=== PATIENT | female | born 1970 | race Caucasian/White ===

== ENCOUNTER 2019-07-26 17:21 | Emergency (ER) | payer MEDICAID ==
[~2019-07-26] VITALS: Ht 175.3 cm; Wt 50.9 kg
[2019-07-26 17:21] VITALS: BP 128/93
[~2019-07-26 17:21] MED LIST: PHEN-716 PO
[2019-07-26] MEDS ORDERED: CEPH500C5 PO (18:34)
[2019-07-26] MEDS ORDERED: L. R1CAP4 PO (18:34)
[2019-07-26 18:47] LABS: URINE HCG NEGATIVE (NEG)
[2019-07-26 18:53] LABS: CLARITY,URINE SLIGHTLY CLOUDY (Clear); COLOR,URINE ORANGE (Yellow)
[2019-07-26 18:56] LABS: UA COLLECTION TYPE CLN CATCH MIDSTREAM
[2019-07-26 19:04] LABS: BACTERIA,URINE FEW /HPF (Neg); CAL OXALATE CRYSTALS 3+ /HPF (NEGATIVE); RBC,URINE 0-2 /HPF (0-2); SQUAMOUS EPITHELIAL CELL,UR FEW /LPF (FEW); WBC,URINE 0-4 /HPF (0-4)
== END 2019-07-26 19:17 | disposition home or self-care (01) ==
LOC: ER 17:30
DX: N39.0 Urinary tract infection, site not specified (principal); F41.9 Anxiety disorder, unspecified; F32.9 Major depressive disorder, single episode, unspecified; Z88.2 Allergy status to sulfonamides; Z79.899 Other long term (current) drug therapy
CPT/HCPCS: 81001; 81025; 99283

== ENCOUNTER 2019-08-16 12:57 | Emergency (ER) | payer MEDICAID ==
[~2019-08-16] VITALS: Ht 177.8 cm; Wt 50.5 kg
[~2019-08-16 12:57] MED LIST changes: +L. R1CAP4 PO
[2019-08-16 13:09] VITALS: BP 115/67
[2019-08-16] MEDS ORDERED: ERYT1OIN6 RIGHTEYE (14:12)
== END 2019-08-16 14:19 | disposition home or self-care (01) ==
LOC: ER 12:59
DX: H10.89 Other conjunctivitis (principal); B96.89 Other specified bacterial agents as the cause of diseases classified elsewhere; F41.9 Anxiety disorder, unspecified; F32.9 Major depressive disorder, single episode, unspecified; Z79.899 Other long term (current) drug therapy; Z88.2 Allergy status to sulfonamides
CPT/HCPCS: 99283

== ENCOUNTER 2022-06-05 20:35 | Emergency (ER) | payer MEDICAID ==
[~2022-06-05] VITALS: Ht 175.3 cm; Wt 53.6 kg
[2022-06-05 20:55] VITALS: BP 139/94
[2022-06-05 21:49] LABS: URINE HCG NEGATIVE (NEG)
[2022-06-05 22:02] LABS: CLARITY,URINE SLIGHTLY CLOUDY (Clear); COLOR,URINE ORANGE (Yellow); UA COLLECTION TYPE CLN CATCH MIDSTREAM
[2022-06-05 22:03] LABS: BACTERIA,URINE 1+ /HPF (Neg); RBC,URINE 0-2 /HPF (0-2); SQUAMOUS EPITHELIAL CELL,UR FEW /LPF (FEW); WBC,URINE 50-100 /HPF (0-4)
[2022-06-05] MEDS ORDERED: CEPH500C2 PO (22:34)
[2022-06-05] MEDS ORDERED: cephalexin 500mg capsule PO ONE (22:35)
--- NOTE | 2022-06-05 22:42 | NUR ---
po med given
== END 2022-06-05 22:59 | disposition home or self-care (01) ==
LOC: ER 20:36
DX: N39.0 Urinary tract infection, site not specified (principal); R31.9 Hematuria, unspecified; Z88.2 Allergy status to sulfonamides
CPT/HCPCS: 81001; 81025; 87077; 87088; 87186; 99283

== ENCOUNTER 2023-06-24 20:01 | Emergency (ER) | payer MEDICAID ==
[~2023-06-24] VITALS: Ht 175.3 cm; Wt 53.2 kg
[2023-06-24 20:30] VITALS: BP 123/78; PULSE 95; RESP 16; O2SAT 100
--- NOTE | 2023-06-24 20:53 | NUR ---
Note jamie in ED - 06/24/23 at 2057 by LORAINE SPOKE WITH MD REGARDING PT PRESENTATION. ORDERS RECIEVED.
[2023-06-25] MEDS ORDERED: proparacaine 0.5% ophthalmic drops 15ml EACHEYE ONE (00:40)
[2023-06-25] MEDS ORDERED: HYDROcodone/acetaminophen 10/325mg tab PO ONE (00:40)
[2023-06-25] MEDS ORDERED: erythromycin ophthalmic ointment 1gm tube EACHEYE ONE (00:40)
[2023-06-25] MEDS ORDERED: ibuprofen tablet 400 MG TABLET PO ONE (01:05)
[2023-06-25] MEDS ORDERED: IBUP-1984 PO (01:11)
[2023-06-25] MEDS ORDERED: CIPR2.5D21 LEFTEYE (01:11)
[2023-06-25 01:15] VITALS: TEMP 99.8
== END 2023-06-25 01:20 | disposition home or self-care (01) ==
LOC: ER 20:01
DX: H10.32 Unspecified acute conjunctivitis, left eye (principal)
CPT/HCPCS: 99283

== ENCOUNTER 2025-08-13 13:56 | Outpatient (CLI) | payer MEDICAID ==
--- NOTE | 2025-08-13 16:25 | RADIOLOGY REPORT ---
EXAM: CT CT CHEST LOW DOSE HISTORY: NICOTINE DEPENDENCE, CIGARETTES, UNCOMPLICATED COMPARISON: None TECHNIQUE: Noncontrast helical CT images of the chest were performed utilizing low dose lung cancer screening protocol. Sagittal and coronal reformatted images were obtained. This CT exam was performed using one or more of the following dose reduction techniques: Automated exposure control, adjustment of the mA and/or kV according to patient size, or use of iterative reconstruction technique. Radiation Dose: CT Dose: CTDI volume is 1.87 mGy. Dose-length product is 63.89 mGy*cm FINDINGS: No noncalcified pulmonary nodules, consolidative infiltrates, pneumothorax, pleural effusions, or pulmonary edema. The lungs are hyperexpanded and hyperlucent without bolus emphysematous changes. No suspicious mediastinal or axillary adenopathy. The heart is not enlarged. There are coronary artery calcifications. No thoracic aortic aneurysm. There are bilateral breast implants. There is a chronic appearing mild superior endplate compression fracture of T3. There is [id number] thoracic degenerative disc disease. IMPRESSION: 1. No noncalcified pulmonary nodules or other acute intrathoracic process. 2. The lungs are hyperexpanded and hyperlucent suggestive of panlobular emphysema. 3. Coronary artery disease. Lung-RADS 1. Negative. Continue annual screening with LDCT in 12 months. Lung- RADS v2022.
== END 2025-08-13 23:59 | disposition home or self-care (01) ==
LOC: RAD 13:56
PROVIDERS: ATTEND Student in an Organized Health Care Education/Training Program
DX: Z12.2 Encounter for screening for malignant neoplasm of respiratory organs (principal); J98.4 Other disorders of lung; M48.54XA Collapsed vertebra, not elsewhere classified, thoracic region, initial encounter for fracture; F17.210 Nicotine dependence, cigarettes, uncomplicated; I25.10 Atherosclerotic heart disease of native coronary artery without angina pectoris; M51.34 Other intervertebral disc degeneration, thoracic region
CPT/HCPCS: 71271